=== PATIENT | female | born 1940 | race Caucasian/White ===

== ENCOUNTER 2020-01-23 08:32 | Outpatient (CLI) | payer MEDICARE, OTHER | END 2020-01-23 23:59 | disposition home or self-care (01) | LOC: 64 CT 08:32 | PROVIDERS: ATTEND Family Medicine | DX: K57.30 Diverticulosis of large intestine without perforation or abscess without bleeding (principal); M48.061 Spinal stenosis, lumbar region without neurogenic claudication; M47.816 Spondylosis without myelopathy or radiculopathy, lumbar region; K76.0 Fatty (change of) liver, not elsewhere classified; J84.10 Pulmonary fibrosis, unspecified; N85.4 Malposition of uterus | CPT/HCPCS: 74176 ==

== ENCOUNTER 2021-09-01 05:36 | Day surgery (SDC) | payer MEDICARE, OTHER ==
[2021-08-26 11:59] LABS: BASOPHILS # (AUTO) 0.1 X10'3 (0-0.2); BASOPHILS % (AUTO) 0.7 % (0-1); EOSINOPHILS # (AUTO) 0.1 X10'3 (0-0.9); EOSINOPHILS % (AUTO) 1.3 % (0-6); LYMPHOCYTES # (AUTO) 1.6 X10'3 (1.1-4.8); LYMPHOCYTES % (AUTO) 19.3 % (21-51); MEAN CORPUSCULAR HEMOGLOBIN 32.2 PG (27.0-31.0); MEAN CORPUSCULAR HGB CONC 33.7 g/dL (33.0-36.5); MEAN CORPUSCULAR VOLUME 95.5 FL (78-98); MEAN PLATELET VOLUME 6.9 FL (7.4-10.4); MONOCYTES # (AUTO) 0.8 X10'3 (0-0.9); MONOCYTES % (AUTO) 9.4 % (2-12); NEUTROPHILS # (AUTO) 5.7 X10'3 (1.8-7.7); NEUTROPHILS % (AUTO) 69.3 % (42-75); PRE OP HEMATOCRIT 39.8 % (35.0-45.0); PRE OP HEMOGLOBIN 13.4 g/dL (12.0-16.0); PRE OP PLATELET COUNT 256 X10'3 (140-440); RED BLOOD COUNT 4.17 X10'6 (4.20-5.60); RED CELL DISTRIBUTION WIDTH 12.6 % (11.5-14.5)
[2021-08-26 12:20] LABS: ALBUMIN/GLOBULIN RATIO 1.2 (1.1-1.5); ALKALINE PHOSPHATASE 60 IU/L (46-116); BLOOD UREA NITROGEN 11 MG/DL (7-18); BUN/CREATININE RATIO 15.5 (6.6-38.0); CALCIUM 8.6 MG/DL (8.5-10.1); CHLORIDE 104 MMOL/L (99-107); CREATININE 0.71 MG/DL (0.40-0.90); PRE OP ALT 19 U/L (30-65); PRE OP ANION GAP 10 (8-16); PRE OP AST 17 U/L (10-37); PRE OP BILIRUB, TOTAL 0.4 MG/DL (0.0-1.0); PRE OP GLUCOSE 96 MG/DL (70-104); PRE OP POTASSIUM 3.9 MMOL/L (3.4-5.1); PRE OP SODIUM 143 MMOL/L (135-145); TOTAL CARBON DIOXIDE 29.1 MMOL/L (24-32); TOTAL PROTEIN 7.4 G/DL (6.4-8.2); eGFR 79 ML/MIN
[~2021-09-01] VITALS: Ht 165.1 cm; Wt 56.6 kg
[2021-09-01] VITALS (30 sets, daily range): BP systolic 112–139; BP diastolic 56–75
[~2021-09-01 05:36] MED LIST: AMLO10TA13 PO; ATOR10TA70 PO; CELE-193 PO; CHOL10008 PO; DENO60DI SUBCUT; LEVO112C4 PO; MULT-1085 PO; PREBIOTIC FIBER PO; ceFAZolin inj. 2,000 MG in dextrose 5%-water 100 ML IV ONE; famotidine 20mg tablet PO ONE; ringers solution, lacted 1,000 ML IV SCH
[2021-09-01] MEDS ORDERED: BUPIVAcaine/PF 2.5mg/ml (0.25%) 10ml vial ONE (06:50)
[2021-09-01] MEDS ORDERED: labetalol 20mg/4ml (5mg/ml) syringe IV PRN (07:55)
[2021-09-01] MEDS ORDERED: hydrALAZINE 20mg/ml inj. IV PRN (07:55)
[2021-09-01] MEDS ORDERED: morphine 2 MG/ML inj. syringe IV PRN (07:55)
[2021-09-01] MEDS ORDERED: ringers solution, lacted 1,000 ML IV SCH (07:55)
[2021-09-01] MEDS ORDERED: fentaNYL/PF 50MCG/1 ML 2ML syringe IV PRN ×2 (07:55)
[2021-09-01] MEDS ORDERED: morphine 4 MG/ML inj SYRINge IV PRN (07:55)
[2021-09-01] MEDS ORDERED: ondansetron/PF 4mg/2ml inj IV PRN (07:55)
[2021-09-01] MEDS ORDERED: fentaNYL/PF 50MCG/1 ML 2ML syringe ONE ×2 (07:59→08:12)
[2021-09-01] MEDS ORDERED: midazolam 1 mg/ML 2ml injection ONE (08:00)
--- NOTE | 2021-09-01 08:34 | NUR ---
Received from OR via [facility], accompanied by Anesthesiologist and report given by DR. GARCIA Anesthesiologist. PATIENT WAKING UP, NO S/S OF PAIN, V/S WNL, SCD ON, 20G TO RUE, LEFT WRIST DRESSING CDI. ICE AND ELEVATED LUE. Addendum: 09/01/21 at 0918 by Cullen Yang RN Amended: Links added.
[2021-09-01] MEDS ORDERED: proCHLORperazine 10 MG/2 ml inj IV PRN (12:30)
[2021-09-01] MEDS ORDERED: aprepitant 40mg capsule PO ONE (13:00)
[2021-09-01] MEDS ORDERED: scopolamine 1mg/72 hr patch TD ONE (13:00)
--- NOTE | 2021-09-01 13:20 | NUR ---
PATIENT A&OX4, DENIES PAIN, V/S WNL, SCD OFF, 20G TO RUE D/C, RIGHT WRIST DRESSING CDI. ICE AND ELEVATED LUE. I HAVE REVIEWED D/C INSTRUCTIONS WITH PATIENT and they have verbalized understanding patient d/c home with all belongings and family gave transport home. Addendum: 09/01/21 at 1323 by Cullen Yang RN Amended: Links added. Addendum: 09/01/21 at 1450 by Cullen Yang RN PATIENT A&OX4, DENIES PAIN, V/S WNL, SCD OFF, 20G TO RUE D/C, LEFT WRIST DRESSING CDI. ICE AND ELEVATED LUE. I HAVE REVIEWED D/C INSTRUCTIONS WITH PATIENT and they have verbalized understanding patient d/c home with all belongings and family gave transport home.
== END 2021-09-01 13:14 | disposition home or self-care (01) ==
LOC: PAS 05:36
PROVIDERS: ATTEND Orthopaedic Surgery Hand Surgery
DX: M72.0 Palmar fascial fibromatosis [Dupuytren] (principal); M19.011 Primary osteoarthritis, right shoulder; M81.0 Age-related osteoporosis without current pathological fracture; I10 Essential (primary) hypertension; M19.012 Primary osteoarthritis, left shoulder; E03.9 Hypothyroidism, unspecified; Z85.828 Personal history of other malignant neoplasm of skin; Z88.5 Allergy status to narcotic agent; Z88.8 Allergy status to other drugs, medicaments and biological substances; Z79.899 Other long term (current) drug therapy; Z98.890 Other specified postprocedural states; Z72.89 Other problems related to lifestyle; Z80.1 Family history of malignant neoplasm of trachea, bronchus and lung; Z98.41 Cataract extraction status, right eye; Z98.42 Cataract extraction status, left eye
CPT/HCPCS: 26123; 36415; 80053; 82948; 85025; 93005; A6222; J0690; J2250; J2270; J2405; J3010; J3490; J7030; J7060; J7120; J8501; Z7506; Z7512; A4215; A6449